=== PATIENT | male | born 1980 | race Caucasian/White ===

== ENCOUNTER 2020-12-10 23:18 | Emergency (ER) | payer MEDICARE ==
[~2020-12-10 23:18] MED LIST: PERCOCET 5-3251 EACH PO
[2020-12-11] MEDS ORDERED: NAPROXEN500 MG PO (02:43)
== END 2020-12-11 03:20 | disposition home or self-care (01) ==
LOC: FER 23:18
DX: S93.401A Sprain of unspecified ligament of right ankle, initial encounter (principal); F17.210 Nicotine dependence, cigarettes, uncomplicated; W11.XXXA Fall on and from ladder, initial encounter; Y92.009 Unspecified place in unspecified non-institutional (private) residence as the place of occurrence of the external cause
CPT/HCPCS: 73610